=== PATIENT | female | born 1985 | race Caucasian/White ===

== ENCOUNTER 2019-12-01 20:20 | Emergency (ER) | payer OTHER ==
[~2019-12-01] VITALS: Ht 170.2 cm; Wt 66.2 kg
[~2019-12-01 20:20] MED LIST: ATIVAN0.5 M1 PO; PAX20 PO; TYLENOL EXTRA500 M2 PO
[2019-12-01 20:29] VITALS: Ht 170.2 cm; Wt 66.2 kg
[2019-12-01 22:20] VITALS: BP 100/57
== END 2019-12-01 22:20 | disposition home or self-care (01) ==
LOC: ED 20:20
DX: L02.413 Cutaneous abscess of right upper limb (principal)